=== PATIENT | male | born 1995 | race Asian ===

== ENCOUNTER 2019-05-31 13:34 | Outpatient (CLI) | payer MEDICAID ==
[~2019-05-31] VITALS: Ht 172.7 cm; Wt 66.7 kg
[2019-05-31 16:19] VITALS: BP 119/89
[2019-05-31] MEDS ORDERED: DESCOVY 200/25 PO (16:19)
--- NOTE | 2019-05-31 19:16 | Consultation ---
DATE OF CONSULTATION: 05/31/2019 CHIEF COMPLAINT: Rectal bleeding. HISTORY OF PRESENT ILLNESS: The patient is a 24-year-old male who was referred to us for evaluation of rectal bleeding and extensive family history of colon cancer at young age. PAST MEDICAL HISTORY: None. PAST SURGICAL HISTORY: None. MEDICATIONS: Please see medication reconciliation list. FAMILY HISTORY: Mother had colon cancer at age 49. Grandfather had colon cancer also. SOCIAL HISTORY: The patient has occasional alcohol. Denies any tobacco or IV drug abuse. ALLERGIES: No known drug allergies. REVIEW OF SYSTEMS: Positive for occasional constipation, rectal bleeding. PHYSICAL EXAMINATION: VITAL SIGNS: Temperature 98.1, blood pressure 119/89, pulse is 89, respirations 20. HEENT: Normocephalic and atraumatic. Sclerae are anicteric. NECK: Supple. No evidence of obvious lymphadenopathy. CARDIOVASCULAR: Regular rate and rhythm. Plus S1 and S2. No obvious murmur. LUNGS: Clear to auscultation bilaterally. ABDOMEN: Positive bowel sounds. Soft and nontender. No rebound. No guarding. No peritoneal sign. EXTREMITIES: No cyanosis, no clubbing, no edema. ASSESSMENT AND PLAN: The patient is a 24-year-old male with extensive family history of colon cancer at young age, now with rectal bleeding. Plan to do a colonoscopy. The patient was given instruction for colonoscopy. The prep was explained to him. The risks and benefits of procedure was explained to him, the patient agreed, we are pending authorization. Hussein Singh M.D. DR: Cele JOB#: [id number] CC:
== END 2019-05-31 15:34 | disposition home or self-care (01) ==
LOC: PAN 13:34
DX: K62.5 Hemorrhage of anus and rectum (principal); K59.00 Constipation, unspecified
CPT/HCPCS: G0463

== ENCOUNTER 2019-10-25 13:16 | Outpatient (CLI) | payer MEDICAID ==
[~2019-10-25 13:16] MED LIST: DESCOVY 200/25 PO
[2019-10-25 15:32] VITALS: BP 115/66
--- NOTE | 2019-10-25 19:15 | Progress Note ---
DATE: 10/25/2019 SUBJECTIVE: No event. The patient is feeling great. OBJECTIVE: VITAL SIGNS: Stable. HEENT: Normocephalic and atraumatic. Sclerae anicteric. NECK: Supple. No evidence of obvious lymphadenopathy. CARDIOVASCULAR: Regular rate and rhythm. Plus S1 and S2. LUNGS: Clear to auscultation bilaterally. ABDOMEN: Positive bowel sounds. Soft, nontender. No rebound. No guarding. No peritoneal sign. EXTREMITIES: No cyanosis. No clubbing. No edema. ASSESSMENT AND PLAN: The patient is a 24-year-old male with extensive family history of colon malignancy, had rectal bleeding. He had a colonoscopy which showed only hemorrhoids, otherwise normal. The patient was reassured today about the findings of the colonoscopy. He was given a copy of it and was told to come back p.r.n. Hussein Singh M.D. DR: PETAR JOB#: [id number] CC:
== END 2019-10-25 15:16 | disposition home or self-care (01) ==
LOC: PAN 13:16
DX: K64.9 Unspecified hemorrhoids (principal)
CPT/HCPCS: 99212